=== PATIENT | male | born 1950 | race Caucasian/White ===

== ENCOUNTER 2017-09-07 03:53 | Emergency (ER) | payer MEDICARE, BC ==
[2017-09-07 05:01] LABS: APPEARANCE,URINE CLEAR; BILIRUBIN,URINE NEGATIVE (NEGATIVE); COLOR,URINE YELLOW; GLUCOSE, URINE 50 mg/dL (NEGATIVE); KETONES,URINE NEGATIVE (NEGATIVE); LEUKOCYTE ESTERASE,URINE TRACE (NEGATIVE); NITRITE,URINE NEGATIVE (NEGATIVE); PROTEIN,URINE NEGATIVE (NEGATIVE); URINE SPECIFIC GRAVITY 1.015; UROBILINOGEN,URINE NEGATIVE mg/dL (<2.0)
--- NOTE | 2017-09-07 05:07 | ER Document Report ---
ED GI/ - General Chief Complaint: Flank Pain Stated Complaint: FLANK PAIN Time Seen by Provider: 09/07/17 04:32 Notes: The patient is a 67-year-old male, past medical history diverticulitis with partial bowel resection, presents with sudden onset of left flank pain radiating to his groin. He was also feeling nauseous, but his pain and nausea has completely resolved when he arrived to the ER. He has no history of kidney stones and denies hematuria, dysuria, rash, vomiting, diarrhea, constipation, headache or chest pain. TRAVEL OUTSIDE OF THE [place] IN LAST 30 DAYS: No - Related Data Allergies/Adverse Reactions: amoxicillin Allergy (Verified 01/12/16 16:15) azithromycin Allergy (Verified 01/12/16 16:15) clavulanic acid [From Augmentin] Allergy (Verified 01/12/16 16:15) Penicillins Allergy (Verified 01/12/16 16:15) sulfadimethoxine Allergy (Verified 01/12/16 16:15) sulfamethoxazole [From Bactrim] Allergy (Verified 01/12/16 19:08) trimethoprim [From Bactrim] Allergy (Verified 01/12/16 19:08) Past Medical History - General Information source: Patient - Social History Smoking Status: Never Smoker Chew tobacco use (# tins/day): No Frequency of alcohol use: None Drug Abuse: None Family History: Reviewed & Not Pertinent Patient has suicidal ideation: No Patient has homicidal ideation: No Renal/ Medical History: Denies: Hx Peritoneal Dialysis Past Surgical History: Reports: Hx Bowel Surgery - resection, Hx Oral Surgery - wisdom, Hx Orthopedic Surgery - L/R knee, Other - 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 RESPIRATORY: -cough, -SOB GASTROINTESTINAL: -abdominal pain, +nausea, -vomiting, -diarrhea GENITOURINARY: -dysuria, -hematuria MUSCULOSKELETAL: +left flank pain, -neck pain SKIN: -rash or skin lesions. HEMATOLOGIC: -easy bruising or bleeding. LYMPHATIC: -swollen, enlarged glands. NEUROLOGICAL: -altered mental status or loss of consciousness, -headache, - neurologic symptoms PSYCHIATRIC: -anxiety, -depression. ALL OTHER SYSTEMS REVIEWED AND NEGATIVE. Physical Exam - Vital signs Vitals: Temp Pulse Resp BP Pulse Ox 98.6 F 65 16 169/92 H 95 09/07/17 03:58 09/07/17 03:58 09/07/17 03:58 09/07/17 03:58 09/07/17 03:58 - Notes Notes: PHYSICAL EXAMINATION: GENERAL: Well-appearing, well-nourished and in no acute distress. HEAD: Atraumatic, normocephalic. EYES: Pupils equal round and reactive to light, extraocular movements intact, sclera anicteric, conjunctiva are normal. ENT: nares patent, oropharynx clear without exudates. Moist mucous membranes. NECK: Normal range of motion, supple without lymphadenopathy LUNGS: Breath sounds clear to auscultation bilaterally and equal. No wheezes rales or rhonchi. HEART: Regular rate and rhythm without murmurs ABDOMEN: Soft, nontender, normoactive bowel sounds. No guarding, no rebound. No masses appreciated. EXTREMITIES: Normal range of motion, no pitting or edema. No cyanosis. NEUROLOGICAL: Cranial nerves grossly intact. Normal speech, normal gait. Normal sensory and motor exams. PSYCH: Normal mood, normal affect. SKIN: Warm, Dry, normal turgor, no rashes or lesions noted. Course - Re-evaluation Re-evalutation: Patient appears well. He has a 6 mm left-sided kidney stone at the UPJ and there are no signs of infection on urinalysis. Provide him with symptomatic treatment and given strict return precautions. He will follow-up with the urologist. - Vital Signs Vital signs: Temp Pulse Resp BP Pulse Ox 98.6 F 65 16 169/92 H 95 09/07/17 03:58 09/07/17 03:58 09/07/17 03:58 09/07/17 03:58 09/07/17 03:58 - Laboratory Laboratory results interpreted by me: 09/07/17 04:29 Urine Glucose (UA) 50 H Ur Leukocyte Esterase TRACE H Urine Ascorbic Acid 20 H - Diagnostic Test Radiology reviewed: Image reviewed, Reports reviewed Radiology results interpreted by me: CT Renal Stone: 6 mm stone at left UPJ with mild hydronephrosis. Discharge - Discharge Clinical Impression: Kidney stone on left side Condition: Stable Disposition: HOME, SELF-CARE Additional Instructions: Follow-up with the urologist as instructed. The phone number for the [facility] urology clinic is and the address is [address] [place] [address] [place] [address] KIDNEY STONE: You are passing or have passed a kidney stone. These stones are usually due to increased calcium or uric acid concentrations in your urine. Stones within the kidney itself are not painful. The pain occurs as the stone leaves the kidney to pass down the long tube, called the ureter, leading to the bladder. If the stone is small, it will usually pass by itself. Most patients can pass the stone at home. You will usually receive medications for pain, nausea or vomiting, and sometimes a medication to assist in passing the kidney stone. However, if the pain is very severe or if vomiting prevents you from taking oral pain medications, you may need to return for further treatment. Drink three or four quarts of fluids per day. You will be given pain medication (if needed) and urine strainers. Strain all your urine to see if the stone passes. If your doctor has asked you to bring the stone in for analysis, return with the stone once it has passed. Return if pain or vomiting become severe, if you develop a high fever, if you are unable to pass your urine, or if other unusual symptoms occur. ANTINAUSEA MEDICATION: You have been given a medication to suppress nausea and vomiting. This type of medication can be given as a shot, pill, or suppository. It will usually last for many hours. Pills and shots usually last six to eight hours, suppositories last about 12 hours. For the typical illness, only one or two doses of the medication may be necessary. Mild lightheadedness may occur. This type of medicine can cause drowsiness. Do not drive or operate dangerous machinery while under its influence. Do not mix with alcohol. See your doctor at once if you have muscle spasms or tightness, or uncontrollable motions (particularly of the neck, mouth, or jaw). Persistent vomiting or severe lightheadedness should also be evaluated by the physician. ORAL NARCOTIC MEDICATION: You have been given a prescription for pain control. This medication is a narcotic. It's best taken with food, as nausea can result if taken on an empty stomach. Don't operate machinery or drive within six hours of taking this medication. Do not combine this medicine with alcohol, or with any medication which can cause sedation (such as cold tablets or sleeping pills) unless you get permission from the physician. Narcotics tend to cause constipation. If possible, drink plenty of fluids and eat a diet high in fiber and fruits. Please be aware that prescription narcotics also have the potential for abuse. People become addicted to these medications because of the general sense of wellbeing that they induce. This feeling along with a significant reduction in tension, anxiety, and aggression provides a stimulating seductive quality to these drugs. Once your pain is under control, we encourage you to discard your unused narcotics. FLOMAX (tamsulosin): Flomax is a medicine that shrinks the prostate gland. It helps relieve symptoms of benign prostatic hypertrophy, such as frequent urination, weak stream, and inadequate emptying. It has been shown to dilate the ureter (tube leading from the kidney to the bladder) and help in passing kidney stones Flomax usually causes no side effects. You may notice slight tiredness and dizziness for a few days. Some patients develop nasal congestion. Rarely, impotence can occur. If the symptoms are bothersome and don't improve with continued use, call your doctor. Contact your doctor or return if you have fainting spells, severe weakness or dizziness, shortness of breath, or rash. FOLLOW-UP CARE: If you have been referred to a physician for follow-up care, call the physician s office for an appointment as you were instructed or within the next two days. If you experience worsening or a significant change in your symptoms, notify the physician immediately or return to the Emergency Department at any time for re-evaluation. Prescriptions: Hydrocodone/Acetaminophen [[place] 5-325 mg Tablet] 1 tab PO Q6H PRN #14 tablet PRN Reason: Ondansetron [Zofran Odt 4 mg Tablet] 1 - 2 tab PO Q4H PRN #15 tab.rapdis PRN Reason: For Nausea/Vomiting Tamsulosin HCl [Flomax] 0.4 mg PO DAILY #10 cap.er.24h Forms: Elevated Blood Pressure Referrals: PAM FOLRES DO [Primary Care Provider] - Follow up as needed [facility] [Provider Group] - Follow up as needed
--- NOTE | 2017-09-07 05:16 | RADIOLOGY REPORT (SQ) ---
CT abdomen and pelvis without contrast on 09/07/2017 at 4:44 AM CLINICAL INDICATION: Left-sided back pain TECHNIQUE: Multiple axial images are obtained throughout the abdomen and pelvis without the administration of contrast. This exam was performed according to our departmental dose-optimization program, which includes automated exposure control, adjustment of the mA and/or kV according to patient size and/or use of iterative reconstruction technique. Total DLP is 909.38 mGy*cm. COMPARISON: None FINDINGS: Abdomen: The lung bases are clear. There is mild left hydronephrosis secondary to a 6 x 6 x 5 mm left UPJ stone at the L3 vertebral body level. There is left perinephric stranding related to the obstruction. There are no other ureteral stones. There is a tiny nonobstructing stone in the lower pole of the right kidney. The unenhanced solid abdominal organs are otherwise unremarkable. Vascular calcifications are noted. There is no abdominal adenopathy. There is no free fluid or free air within the abdomen. The abdominal portion of the GI tract is unremarkable. Pelvis: There is no free fluid in the pelvis. The patient is status post sigmoid colon resection with primary anastomosis. There is diverticulosis. The pelvic portion of the GI tract including the appendix is otherwise unremarkable. There is no pelvic adenopathy. Degenerative changes are noted in the spine. IMPRESSION: 1. Mild left hydronephrosis secondary to a 6 mm left UPJ stone. 2. Tiny nonobstructing right renal stone. 3. Diverticulosis.
[2017-09-07 05:39] VITALS: BP 136/72
== END 2017-09-07 05:49 | disposition home or self-care (01) ==
LOC: ER 03:53
DX: N13.2 Hydronephrosis with renal and ureteral calculous obstruction (principal); Z87.19 Personal history of other diseases of the digestive system; Z90.49 Acquired absence of other specified parts of digestive tract; Z88.0 Allergy status to penicillin; Z88.1 Allergy status to other antibiotic agents
CPT/HCPCS: 76380; 81001; 99284

== ENCOUNTER 2017-09-08 11:48 | Emergency (ER) | payer MEDICARE, BC ==
--- NOTE | 2017-09-08 12:34 | ER Document Report ---
ED Medical Screen (RME) - General Chief Complaint: Fever Stated Complaint: FEVER Time Seen by Provider: 09/08/17 12:23 Notes: Patient is here because he is running a fever and was here a couple of days ago and diagnosed with nonobstructive ureteral stone on the left. He says the pain from the stone is much better, even though he has not passed the stone. He was having severe pain in the left flank region. When here a little over 24 hours ago, he had a CT scan showing a 6 mm stone in the left UPJ. His discharge instructions included recommendation that he return for reevaluation if he is running a fever. Patient says he had a temperature of 101.2 this morning. He denies any nausea or vomiting. Does not have any significant flank pain now. Only problem is the fever. Hypertension. History of heart murmur. TRAVEL OUTSIDE OF THE [place] IN LAST 30 DAYS: No - Related Data Allergies/Adverse Reactions: amoxicillin Allergy (Verified 09/08/17 11:49) azithromycin Allergy (Verified 09/08/17 11:49) clavulanic acid [From Augmentin] Allergy (Verified 09/08/17 11:49) Penicillins Allergy (Verified 09/08/17 11:49) sulfadimethoxine Allergy (Verified 09/08/17 11:49) sulfamethoxazole [From Bactrim] Allergy (Verified 09/08/17 11:49) trimethoprim [From Bactrim] Allergy (Verified 09/08/17 11:49) Past Medical History - Social History Chew tobacco use (# tins/day): No Frequency of alcohol use: None Drug Abuse: None - Past Medical History Cardiac Medical History: Reports: Hx Hypercholesterolemia, Hx Hypertension Renal/ Medical History: Reports: Hx Kidney Stones. 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
[2017-09-08 13:03] LABS: ABSOLUTE LYMPHOCYTES (AUTO) 1.2 10^3/uL (0.5-4.7); ABSOLUTE MONOCYTES (AUTO) 1.1 10^3/uL (0.1-1.4); ABSOLUTE NEUT (AUTO) 9.5 10^3/uL (1.7-8.2); BASOPHILS % (AUTO) 0.2 % (0-2); EOSINOPHILS % (AUTO) 0.2 % (0-6); HEMATOCRIT 43.4 % (37.9-51.0); HEMOGLOBIN 14.6 g/dL (13.5-17.0); LYMPHOCYTES % (AUTO) 9.9 % (13-45); MEAN CORPUSCULAR HEMOGLOBIN 29.9 pg (27.0-33.4); MEAN CORPUSCULAR HGB CONC 33.7 g/dL (32.0-36.0); MEAN CORPUSCULAR VOLUME 89 fl (80-97); MONOCYTES % (AUTO) 9.6 % (3-13); PLATELET COUNT 159 10^3/uL (150-450); RED BLOOD COUNT 4.88 10^6/uL (4.35-5.55); RED CELL DISTRIBUTION WIDTH 14.2 % (11.5-14.0); SEGMENTED NEUTROPHILS % (AUTO) 80.1 % (42-78); TOTAL CELLS COUNTED % (AUTO) 100 %; WHITE BLOOD COUNT 11.8 10^3/uL (4.0-10.5)
[2017-09-08 13:16] LABS: APPEARANCE,URINE SLIGHTLY-CLOUDY; BILIRUBIN,URINE NEGATIVE (NEGATIVE); COLOR,URINE STRAW; GLUCOSE, URINE NEGATIVE (NEGATIVE); KETONES,URINE NEGATIVE (NEGATIVE); LEUKOCYTE ESTERASE,URINE MODERATE (NEGATIVE); NITRITE,URINE NEGATIVE (NEGATIVE); PROTEIN,URINE NEGATIVE (NEGATIVE); URINE SPECIFIC GRAVITY 1.005; UROBILINOGEN,URINE NEGATIVE mg/dL (<2.0)
[2017-09-08 13:20] LABS: ALANINE AMINOTRANSFERASE 28 U/L (21-72); ALBUMIN 3.8 g/dL (3.5-5.0); ALKALINE PHOSPHATASE 71 U/L (38-126); ANION GAP 12 (5-19); ASPARTATE AMINO TRANSFERASE 24 U/L (17-59); BILIRUBIN,DIRECT 0.2 mg/dL (0.0-0.4); BILIRUBIN,TOTAL 0.9 mg/dL (0.2-1.3); BLOOD UREA NITROGEN 22 mg/dL (7-20); CARBON DIOXIDE 25 mmol/L (22-30); CHLORIDE 99 mmol/L (98-107); GLUCOSE 94 mg/dL (75-110); POTASSIUM 4.4 mmol/L (3.6-5.0); SODIUM 136.2 mmol/L (137-145); TOTAL PROTEIN 6.5 g/dL (6.3-8.2)
--- NOTE | 2017-09-08 13:35 | RADIOLOGY REPORT (SQ) ---
EXAM DESCRIPTION: KUB/ABDOMEN (SINGLE VIEW) COMPLETED DATE/TIME: 09/08/2017 1:03 pm REASON FOR STUDY: Stone left UPJ on CT scan yesterday COMPARISON: Abdominal CT scan dated 09/07/2017 NUMBER OF VIEWS: One view. TECHNIQUE: Supine radiographic image of the abdomen acquired. LIMITATIONS: None. FINDINGS: BOWEL GAS PATTERN: Normal bowel gas pattern. No dilated loops. CALCIFICATIONS: The previously described obstructing calculus at the level of the left UPJ is difficu lt to visualize but appears to be present at the approximate level of the UPJ on the left. No other definite renal ureteric calculi are identified. SOFT TISSUES: No gross mass or suggestion of organomegaly. HARDWARE: None in the abdomen. BONES: No acute fracture. No worrisome bone lesions. OTHER: No other significant finding. IMPRESSION: The previously described obstructing calculus at the level of the left UPJ is difficult to visualize but appears to be present at the approximate level of the UPJ on the left. Other findin gs as noted above TECHNICAL DOCUMENTATION: JOB ID: [id number] [employer]- All Rights Reserved Reading location - IP/workstation name: [email or web address]
--- NOTE | 2017-09-08 13:47 | ER Document Report ---
ED Fever - General Chief Complaint: Fever Stated Complaint: FEVER Time Seen by Provider: 09/08/17 12:23 Notes: 67-year-old male to emergency department for evaluation of left flank pain and fever. Patient was seen here 1 day ago. Diagnosed with a 6 mm stone at the left ureteral pelvic junction. Began having fever and chills today. Taking his medication but not on any antibiotics at this time. Scheduled to see urology tomorrow. No vomiting. No other issues at this time. Pain is located on the left flank. Nonradiating. Moderate. Rated as a 5/10 on numeric pain scale. Mild nausea no obvious vomiting. TRAVEL OUTSIDE OF THE [place] IN LAST 30 DAYS: No - HPI Onset: Yesterday Onset/Duration: Gradual Quality of pain: Throbbing Severity: Moderate Pain Level: 2 - Related Data Allergies/Adverse Reactions: amoxicillin Allergy (Verified 09/08/17 11:49) azithromycin Allergy (Verified 09/08/17 11:49) clavulanic acid [From Augmentin] Allergy (Verified 09/08/17 11:49) Penicillins Allergy (Verified 09/08/17 11:49) sulfadimethoxine Allergy (Verified 09/08/17 11:49) sulfamethoxazole [From Bactrim] Allergy (Verified 09/08/17 11:49) trimethoprim [From Bactrim] Allergy (Verified 09/08/17 11:49) Past Medical History - General Information source: Patient - Social History Smoking Status: Never Smoker Chew tobacco use (# tins/day): No Frequency of alcohol use: None Drug Abuse: None Lives with: Family Family History: Reviewed & Not Pertinent Patient has suicidal ideation: No Patient has homicidal ideation: No - Past Medical History Cardiac Medical History: Reports: Hx Hypercholesterolemia, Hx Hypertension Renal/ Medical History: Reports: Hx Kidney Stones. 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 denies: Malaise, Weakness EENT: denies: Ear pain, Difficulty swallowing, Mouth pain, Mouth swelling Cardiovascular: denies: Chest pain, Palpitations, Heart racing Respiratory: denies: Cough, Hurts to breathe, Short of breath Gastrointestinal: Nausea. denies: Abdominal pain, Diarrhea Genitourinary: Flank pain. denies: Burning, Hematuria Musculoskeletal: Back pain. denies: Joint pain, Muscle pain Skin: denies: Dryness, Lesions, Lumps, Rash Hematologic/Lymphatic: denies: Anemia, Blood clots, Easy bleeding, Easy bruising Neurological/Psychological: denies: Confusion, Weakness, Numbness Physical Exam - Vital signs Vitals: Temp Pulse Resp BP Pulse Ox 99.2 F 76 20 129/61 H 95 09/08/17 11:56 09/08/17 11:56 09/08/17 11:56 09/08/17 11:56 09/08/17 11:56 Interpretation: Normal - General General appearance: Appears well, Alert - HEENT Head: Normocephalic, Atraumatic Eyes: Normal Pupils: PERRL - Respiratory Respiratory status: No respiratory distress Chest status: Nontender Breath sounds: Normal Chest palpation: Normal - Cardiovascular Rhythm: Regular Heart sounds: Normal auscultation Murmur: No - Abdominal Inspection: Normal Distension: No distension Bowel sounds: Normal Tenderness: Nontender Organomegaly: No organomegaly - Back Back: Normal, Tender, CVA tenderness - CVA tenderness on the left - Extremities General upper extremity: Normal inspection, Nontender, Normal color, Normal ROM , Normal temperature General lower extremity: Normal inspection, Nontender, Normal color, Normal ROM , Normal temperature, Normal weight bearing. No: Marnie's sign - Neurological Neuro grossly intact: Yes Cognition: Normal Orientation: AAOx4 [place] Coma Scale Eye Opening: Spontaneous [place] Coma Scale Verbal: Oriented Maria A Coma Scale Motor: Obeys Commands Maria A Coma Scale Total: 15 Speech: Normal Motor strength normal: LUE, RUE, LLE, RLE Sensory: Normal - Psychological Associated symptoms: Normal affect, Normal mood - Skin Skin Temperature: Warm Skin Moisture: Dry Skin Color: Normal Course - Re-evaluation Re-evalutation: 09/08/17 14:28 At this time patient with reported fever at home with a blood count of 11.8. Urinalysis concerning for possible infection. Will attempt to contact the urologist at this time. Starting antibiotics. 09/08/17 14:[address] garcia's office. Awaiting callback from urologist at this time for input. Concern exists at this time for an infected obstructed stone. Febrile at home but not febrile here. Elevated WBC count and urine suspicious for infection 09/08/17 14:42 Dr. Small accepts to the OR at [facility] . Truck available to transfer immediately. - Vital Signs Vital signs: Temp Pulse Resp BP Pulse Ox 99.2 F 76 20 129/61 H 95 09/08/17 11:56 09/08/17 11:56 09/08/17 11:56 09/08/17 11:56 09/08/17 11:56 - Laboratory Result Diagrams: 09/08/17 12:38 09/08/17 12:38 Laboratory results interpreted by me: 09/08/17 09/08/17 09/08/17 12:38 12:38 12:38 WBC 11.8 H RDW 14.2 H Seg Neutrophils % 80.1 H Lymphocytes % 9.9 L Absolute Neutrophils 9.5 H Sodium 136.2 L BUN 22 H Creatinine 1.49 H Est GFR ( Amer) 57 L Est GFR (Non-Af Amer) 47 L Urine Blood SMALL H Ur Leukocyte Esterase MODERATE H Discharge - Discharge Clinical Impression: Ureterolithiasis Urinary tract infection Qualifiers: Urinary tract infection type: site unspecified Hematuria presence: with hematuria Qualified Code(s): N39.0 - Urinary tract infection, site not specified ; R31.9 - Hematuria, unspecified; R31.9 - Hematuria, unspecified Condition: Good Disposition: [facility] Instructions: Urinary Tract Infection ([facility]), Kidney Stone ([facility]) Prescriptions: Ciprofloxacin HCl [Cipro 500 mg Tablet] 500 mg PO BID #20 tablet Referrals: PAM FLORES DO [Primary Care Provider] - Follow up as needed
[2017-09-08] MEDS ORDERED: HYDROMORPHONE HCL INJ/PF 2 MG/ML AMPULE IV ONE (14:00)
[2017-09-08] MEDS ORDERED: ONDANSETRON 4 MG TAB.RAPDIS PO ONE (14:01)
[2017-09-08] MEDS ORDERED: CEFTRIAXONE INJ 1000 MG VIAL IV ONE (14:01)
[2017-09-08] MEDS ORDERED: CIPROFLOXACIN 400 MG/D5W RTU 400 MG/200 ML RTUPB IV SCH (15:00)
[2017-09-08] MEDS ORDERED: NORMAL SALINE 1000 ML 1,000 ML IV ONE (16:22)
[2017-09-08 17:05] VITALS: BP 124/69
== END 2017-09-08 17:00 | disposition short-term general hospital (02) ==
LOC: ER 11:48
DX: N20.1 Calculus of ureter (principal); N39.0 Urinary tract infection, site not specified; R31.9 Hematuria, unspecified; I10 Essential (primary) hypertension; R50.9 Fever, unspecified; E78.00 Pure hypercholesterolemia, unspecified; R10.9 Unspecified abdominal pain; Z88.0 Allergy status to penicillin; Z88.3 Allergy status to other anti-infective agents; Z87.442 Personal history of urinary calculi
CPT/HCPCS: 99284; 96375; 96365; 96366; 36415; 87040; 87086; 85025; 87077; 80053; 81001; 87186; 74018; A9270; J1170; J0744; S0119